=== PATIENT | female | born 1975 | race Caucasian/White ===

== ENCOUNTER → 2022-10-27 13:54 | Outpatient (CLI) | payer OTHER, MEDICAID, SELFPAY ==
--- NOTE | 2022-10-27 13:56 | DI.US.S_ITS ---
PROCEDURE: US PELVIC COMPLETE INDICATIONS: Dysmenorrhea TECHNIQUE: Real-time scanning was performed of the pelvic organs, with image documentation. Additional endovaginal scanning was necessary due to incomplete visualization of the adnexal and endometrial structures by transabdominal scanning. COMPARISON: None. FINDINGS: Uterus: Uterus is anteverted and normal in size at 9.2 x 4.3 x 5.3 cm. The myometrium is heterogeneous. The endometrium measures 7.3 mm combined thickness. Ovaries: The right ovary measures 3.1 x 1.9 x 2.3 cm, with a calculated ovarian volume of 7.0 cc. The left ovary measures 5.0 x 3.4 x 3.2 cm, with a calculated ovarian volume of 28.3 cc. The ovaries have a normal sonographic appearance. Less than 12 follicles can be seen in each ovary. There are multiple ovarian cyst noted. There is a right ovarian cyst measuring 4.8 x 2.3 x 3.7 cm. It is a simple cyst. There is a left ovarian simple cyst measuring 3.5 x 2.9 x 2.7 cm. There is a corpus luteum on the left, measuring 2.2 cm in maximum diameter. Other: No pathologic free abdominal or pelvic fluid. IMPRESSION: 1. Normal endometrial thickness. 2. Bilateral ovarian cysts. Due to the size of the largest cyst, on the right, measuring 4.8 cm in maximum diameter, consider repeat pelvic ultrasound in 6-8 weeks to demonstrate resolution or decrease in cyst size. We strive to produce accurate, complete, and clear reports of imaging services. To assist us in improving patient care, this report was composed using standard report templates and voice recognition software. Therefore, it may contain abnormal punctuation, insertions and/or omissions. Occasional wrong-word or sound-alike substitutions may occur. Though we review the report and make efforts to correct it, we do recommend that the report be read carefully in proper context to recognize any text inaccuracies. Dictated by: Delmer De Anda M.D. on 10/27/2022 at 15:41 Approved by: Delmer De Anda M.D. on 10/27/2022 at 15:45
== END ==
PROVIDERS: Referring Provider Obstetrics & Gynecology; Visit Provider Obstetrics & Gynecology
DX: N94.6 Dysmenorrhea, unspecified (principal); N83.292 Other ovarian cyst, left side; N83.291 Other ovarian cyst, right side; N83.12 Corpus luteum cyst of left ovary
CPT/HCPCS: 76830; 76856